=== PATIENT | female | born 1980 | race Two or more races ===

== ENCOUNTER 2019-10-06 04:25 | Emergency (ER) | payer OTHER ==
[~2019-10-06] VITALS: Ht 167.6 cm; Wt 568.4 kg
[2019-10-06 04:25] VITALS: BP 99/68
[2019-10-06 05:04] LABS: APPEARANCE,URINE TURBID (CLEAR); BILIRUBIN,URINE MODERATE (NEGATIVE); BLOOD, URINE LARGE Ery/uL (NEGATIVE); COLOR,URINE RED (YELLOW); KETONES,URINE NEGATIVE (NEGATIVE); LEUKOCYTE ESTERASE ,URINE LARGE (NEGATIVE); NITRITE, URINE POSITIVE (NEGATIVE); PROTEIN,URINE 100 mg/dl (NEGATIVE); UGLUCOSE NEGATIVE (NEGATIVE); UROBILINOGEN,URINE 0.2 EU/dL (0.2)
[2019-10-06 05:09] LABS: BACTERIA,URINE Few /HPF (None Seen); RBC,URINE TOO NUMEROUS TO COUN /HPF (0-2); SQUAMOUS EPITHELIAL CELL,UR Few /HPF (None Seen); WBC,URINE 21-50 /HPF (0-3)
[2019-10-06] MEDS ORDERED: NITROFURANTOIN/NITROFURAN MAC 100 MG CAPSULE PO ONE (05:30)
[2019-10-06] MEDS ORDERED: PHENAZOPYRIDINE HCL 200 MG TABLET PO ONE (05:30)
[2019-10-06] MEDS ORDERED: PHENAZOPYRIDINE HCL 200 MG TABLET ONE (05:41)
[2019-10-06] MEDS ORDERED: NITROFURANTOIN/NITROFURAN MAC 100 MG CAPSULE ONE (05:41)
--- NOTE | 2019-10-06 05:45 | NUR ---
Patient discharged to home in stable condition. Written and verbal after care instructions given. Patient verbalizes understanding of instruction. Pt ambulatory with a steady gait
== END 2019-10-06 05:46 | disposition home or self-care (01) ==
LOC: ER 04:48
DX: N39.0 Urinary tract infection, site not specified (principal); Z88.2 Allergy status to sulfonamides; Z88.1 Allergy status to other antibiotic agents
CPT/HCPCS: 81000-TC; 84703-TC; 87086-TC

== ENCOUNTER 2019-12-03 19:54 | Emergency (ER) | payer OTHER ==
[~2019-12-03] VITALS: Ht 167.6 cm; Wt 49.4 kg
[2019-12-03 19:54] VITALS: BP 107/72
== END 2019-12-03 20:29 | disposition home or self-care (01) ==
LOC: ER 20:00
DX: M54.5 Low back pain (principal); M25.561 Pain in right knee; G89.29 Other chronic pain; Z88.2 Allergy status to sulfonamides; Z88.1 Allergy status to other antibiotic agents; Z88.6 Allergy status to analgesic agent

== ENCOUNTER 2020-05-28 23:11 | Emergency (ER) | payer OTHER ==
[~2020-05-28] VITALS: Ht 167.6 cm; Wt 59.0 kg
--- NOTE | 2020-05-28 23:51 | NUR ---
PT AAOX4. AMBULATORY WITH STEADY GAIT. BIBSELF C/O L ARM TWITCHING, SI WITH PLAN TO RUN INTO TRAFFIC, CUT WRIST. PT PROVIDED URINE SAMPLE, SENT TO LAB. PT BELONINGS PLACED IN LOCKER. PT PLACED IN GOWN, ON MONITOR, AND PULSE OX.
[2020-05-29 00:10] LABS: BASOPHILS % (AUTO) 0.4 % (0.0-2.0); EOSINOPHILS % (AUTO) 0.5 % (0.0-6.0); HEMATOCRIT 40 % (33-45); HEMOGLOBIN 13.3 g/dL (11.5-14.8); LYMPHOCYTES # (AUTO) 2.2 /CMM (0.8-4.8); LYMPHOCYTES % (AUTO) 26.5 % (20.0-44.0); MEAN CORPUSCULAR HGB CONC 34 g/dl (31.0-36.0); MEAN CORPUSCULAR VOLUME 98 fL (82-100); MONOCYTES # (AUTO) 0.8 /CMM (0.1-1.30); MONOCYTES % (AUTO) 10.1 % (2.0-12.0); NEUTROPHILS # (AUTO) 5.3 /CMM (1.8-8.9); NEUTROPHILS % (AUTO) 62.5 % (43.0-81.0); PLATELET COUNT (AUTO) 270 /CMM (150-450); RED BLOOD CELL COUNT(AUTO) 4.05 MIL/uL (4.0-5.2); WHITE BLOOD COUNT (AUTO) 8.4 K/uL (4.3-11.0)
[2020-05-29 00:15] LABS: APPEARANCE,URINE SL CLOUDY (CLEAR); BILIRUBIN,URINE NEGATIVE (NEGATIVE); BLOOD, URINE TRACE-INTA Ery/uL (NEGATIVE); COLOR,URINE YELLOW (YELLOW); KETONES,URINE TRACE (NEGATIVE); LEUKOCYTE ESTERASE ,URINE SMALL (NEGATIVE); NITRITE, URINE NEGATIVE (NEGATIVE); PROTEIN,URINE NEGATIVE (NEGATIVE); UGLUCOSE NEGATIVE (NEGATIVE); UROBILINOGEN,URINE 0.2 EU/dL (0.2)
[2020-05-29 00:22] LABS: BACTERIA,URINE Many /HPF (None Seen); SQUAMOUS EPITHELIAL CELL,UR Moderate /HPF (None Seen)
[2020-05-29 00:23] LABS: URINE AMORPHOUS URATE Few /HPF (None Seen)
[2020-05-29 00:23] LABS: CALCIUM, SERUM 9.1 mg/dL (8.5-10.1); CARBON DIOXIDE 29 mmol/L (21-32); CHLORIDE 103 mmol/L (98-107); CREATININE 0.7 mg/dL (0.6-1.3); GLUCOSE 90 mg/dL (74-106); POTASSIUM 3.8 mmol/L (3.5-5.1); SODIUM SERUM 138 mmol/L (136-145); UREA NITROGEN, BLOOD 10 mg/dL (7-18)
[2020-05-29 00:31] LABS: ALANINE AMINOTRANSFERASE 20 U/L (12-78); ALBUMIN 3.9 g/dL (3.4-5.0); ALCOHOL, BLOOD < 3 mg/dL (0-0); ALKALINE PHOSPHATASE 57 U/L (46-116); ASPARTATE AMINOTRANSFERASE 17 U/L (15-37); BILIRUBIN,DIRECT 0.1 mg/dL (0.0-0.2); BILIRUBIN,TOTAL 0.5 mg/dL (0.2-1.0); TOTAL PROTEIN, SERUM 7.6 g/dL (6.4-8.2)
[2020-05-29 00:32] LABS: ACETAMINOPHEN < 2 ug/ml (10-30)
[2020-05-29] MEDS ORDERED: LORAZEPAM 1 MG TABLET ONE (01:05)
--- NOTE | 2020-05-29 01:14 | NUR ---
ENZOID SWABBED, SENT TO LAB.
--- NOTE | 2020-05-29 01:18 | NUR ---
CLINICAL FAXED TO [facility] FOR VOLUNTARY PSYCH ADMISSION.
[2020-05-29] MEDS ORDERED: LORAZEPAM 1 MG TABLET PO ONE (01:30)
--- NOTE | 2020-05-29 03:47 | NUR ---
PT ASLEEP, PROVIDED WITH MORE BLANKETS.
--- NOTE | 2020-05-29 04:39 | NUR ---
eceived a call from Azra at [facility] intake w/ acceptance info: pt got accepted at [facility] fernandez under DR Correa # for report: [phone] EX: [phone]
--- NOTE | 2020-05-29 04:42 | NUR ---
[facility] ETA 1000.
[2020-05-29 07:14] VITALS: BP 98/65
--- NOTE | 2020-05-29 07:15 | NUR ---
Matheus alvarez in [facility] - 05/29/20 at 0716 by NITIN REPORT GIVEN TO JOHANN HYMAN ADOLFO
--- NOTE | 2020-05-29 07:15 | NUR ---
PT TRANSFERED TO [facility].
--- NOTE | 2020-05-29 07:15 | NUR ---
REPORT GIVEN TO JOHANN TAN FOR ADOLFO
== END 2020-05-29 07:18 ==
LOC: ER 23:32
DX: F32.9 Major depressive disorder, single episode, unspecified (principal); R45.851 Suicidal ideations; Z20.828 Contact with and (suspected) exposure to other viral communicable diseases; Z88.2 Allergy status to sulfonamides; Z88.8 Allergy status to other drugs, medicaments and biological substances; G89.29 Other chronic pain; M54.9 Dorsalgia, unspecified
CPT/HCPCS: 36415; 80048; 80076; 80299; 80307; 80320; 81001; 84703; 85025; 87086; 87426; 99285; C9803; 81000-TC; G0480

== ENCOUNTER 2020-07-09 20:23 | Emergency (ER) | payer OTHER ==
[~2020-07-09] VITALS: Ht 167.6 cm; Wt 54.4 kg
--- NOTE | 2020-07-09 21:00 | NUR ---
PRESENTED TO THE ER FOR SUBSTANCE ABUSE. PT REPORTED HALLUCINATIONS, SI W. PLAN TO CUT HER WRIST. PT AMBULATORY TO BED 13. W/ STABLE VS. GOWNED UP . BELONGINGS TAKEN AWAY FOR SAFETY. PT REMAINED ON SI PRECAUTIONS. WILL CONT TO MONITOR
[2020-07-09 23:22] LABS: BASOPHILS # (AUTO) 0.1 /CMM (0.0-0.2); BASOPHILS % (AUTO) 0.8 % (0.0-2.0); EOSINOPHILS % (AUTO) 1.4 % (0.0-6.0); HEMATOCRIT 45 % (33-45); HEMOGLOBIN 14.9 g/dL (11.5-14.8); LYMPHOCYTES # (AUTO) 3.9 /CMM (0.8-4.8); LYMPHOCYTES % (AUTO) 47.5 % (20.0-44.0); MEAN CORPUSCULAR HGB CONC 34 g/dl (31.0-36.0); MEAN CORPUSCULAR VOLUME 97 fL (82-100); MONOCYTES # (AUTO) 0.7 /CMM (0.1-1.30); MONOCYTES % (AUTO) 8.2 % (2.0-12.0); NEUTROPHILS # (AUTO) 3.4 /CMM (1.8-8.9); NEUTROPHILS % (AUTO) 42.1 % (43.0-81.0); PLATELET COUNT (AUTO) 323 /CMM (150-450); RED BLOOD CELL COUNT(AUTO) 4.58 MIL/uL (4.0-5.2); WHITE BLOOD COUNT (AUTO) 8.1 K/uL (4.3-11.0)
[2020-07-09] MEDS ORDERED: LORAZEPAM 1 MG TABLET PO ONE (23:30)
[2020-07-09 23:31] LABS: CALCIUM, SERUM 9.2 mg/dL (8.5-10.1); CARBON DIOXIDE 21 mmol/L (21-32); CHLORIDE 105 mmol/L (98-107); CREATININE 0.8 mg/dL (0.6-1.3); GLUCOSE 79 mg/dL (74-106); POTASSIUM 3.2 mmol/L (3.5-5.1); SODIUM SERUM 141 mmol/L (136-145); UREA NITROGEN, BLOOD 11 mg/dL (7-18)
[2020-07-09 23:37] LABS: ALANINE AMINOTRANSFERASE 23 U/L (12-78); ALBUMIN 4.2 g/dL (3.4-5.0); ALCOHOL, BLOOD 4 mg/dL (0-0); ALKALINE PHOSPHATASE 68 U/L (46-116); ASPARTATE AMINOTRANSFERASE 28 U/L (15-37); BILIRUBIN,DIRECT 0.4 mg/dL (0.0-0.2); BILIRUBIN,TOTAL 1.7 mg/dL (0.2-1.0); TOTAL PROTEIN, SERUM 8.1 g/dL (6.4-8.2)
[2020-07-09 23:39] LABS: ACETAMINOPHEN < 2 ug/ml (10-30)
[2020-07-09] MEDS ORDERED: LORAZEPAM 1 MG TABLET ONE (23:43)
[2020-07-10 00:01] LABS: BILIRUBIN,URINE SMALL (NEGATIVE); BLOOD, URINE Moderate Ery/uL (NEGATIVE); COLOR,URINE YELLOW (YELLOW); LEUKOCYTE ESTERASE ,URINE Trace (NEGATIVE); NITRITE, URINE Negative (NEGATIVE); PH,URINE 6.5 (5.0-8.0); PROTEIN,URINE Trace mg/dl (NEGATIVE); UGLUCOSE Negative (NEGATIVE); UROBILINOGEN,URINE 0.2 EU/dL (0.2)
[2020-07-10 00:22] LABS: BACTERIA,URINE Few /HPF (None Seen); SQUAMOUS EPITHELIAL CELL,UR Few /HPF (None Seen)
--- NOTE | 2020-07-10 02:59 | NUR ---
rec'd a call from Simeon from [facility] intake pt got accepted by dr lin at [facility] unit 2 report to [phone] ext [phone]
--- NOTE | 2020-07-10 03:16 | NUR ---
[facility] transportation ETA: [id number]. trip #[phone]
[2020-07-10 03:47] VITALS: BP 97/47
--- NOTE | 2020-07-10 07:56 | NUR ---
report given to ambreen perkins at [facility]
--- NOTE | 2020-07-10 08:03 | NUR ---
Patient discharged to home in stable condition. Written and verbal after care instructions given. Patient verbalizes understanding of instruction. reporty given to health care analyst for ambulance rock picker.
== END 2020-07-10 08:05 ==
LOC: ER 20:23
DX: F32.9 Major depressive disorder, single episode, unspecified (principal); R45.851 Suicidal ideations; F15.10 Other stimulant abuse, uncomplicated; F12.10 Cannabis abuse, uncomplicated; Z86.19 Personal history of other infectious and parasitic diseases; Z20.828 Contact with and (suspected) exposure to other viral communicable diseases; Z88.1 Allergy status to other antibiotic agents; Z88.2 Allergy status to sulfonamides; G89.29 Other chronic pain; M54.9 Dorsalgia, unspecified
CPT/HCPCS: 36415; 80048; 80076; 80299; 80307; 80320; 81001; 84703; 85025; 87426; 99285; C9803; G0480

== ENCOUNTER 2020-10-20 | Emergency (ER) | payer OTHER ==
[~2020-10-20] VITALS: Ht 167.6 cm; Wt 59.0 kg
--- NOTE | 2020-10-20 00:20 | NUR ---
PT BIBSELF C/O GENERALIZED BODY PAIN S/P METH USE. PT AAOX4. VITAL SIGNS STABLE. AMBULATORY WITH STEADY GAIT. NO ACUTE DISTRESS.
[2020-10-20] MEDS ORDERED: OLANZAPINE 5 MG TABLET PO ONE (01:30)
--- NOTE | 2020-10-20 01:30 | NUR ---
PT DENIES SI/HI AT THIS TIME. AMBULATORY WITH STEADY GAIT. AAOX4. PT LEFT WITHOUT ACI
[2020-10-20 01:35] LABS: BASOPHILS % (AUTO) 0.5 % (0.0-2.0); EOSINOPHILS % (AUTO) 0.6 % (0.0-6.0); HEMATOCRIT 41 % (33-45); LYMPHOCYTES # (AUTO) 2.1 /CMM (0.8-4.8); LYMPHOCYTES % (AUTO) 25.3 % (20.0-44.0); MEAN CORPUSCULAR HGB CONC 34 g/dl (31.0-36.0); MEAN CORPUSCULAR VOLUME 94 fL (82-100); MONOCYTES # (AUTO) 0.4 /CMM (0.1-1.30); MONOCYTES % (AUTO) 5.3 % (2.0-12.0); NEUTROPHILS # (AUTO) 5.5 /CMM (1.8-8.9); NEUTROPHILS % (AUTO) 68.3 % (43.0-81.0); PLATELET COUNT (AUTO) 237 /CMM (150-450); RED BLOOD CELL COUNT(AUTO) 4.39 MIL/uL (4.0-5.2); WHITE BLOOD COUNT (AUTO) 8.1 K/uL (4.3-11.0)
[2020-10-20 01:42] LABS: BILIRUBIN,URINE NEGATIVE (NEGATIVE); COLOR,URINE YELLOW (YELLOW); LEUKOCYTE ESTERASE ,URINE MODERATE (NEGATIVE); NITRITE, URINE NEGATIVE (NEGATIVE); PH,URINE 6.5 (5.0-8.0); PROTEIN,URINE NEGATIVE (NEGATIVE); UGLUCOSE NEGATIVE (NEGATIVE); UROBILINOGEN,URINE 0.2 EU/dL (0.2)
[2020-10-20 01:43] LABS: CARBON DIOXIDE 26 mmol/L (21-32); CHLORIDE 105 mmol/L (98-107); CREATININE 0.8 mg/dL (0.6-1.3); GLUCOSE 94 mg/dL (74-106); POTASSIUM 3.6 mmol/L (3.5-5.1); SODIUM SERUM 140 mmol/L (136-145); UREA NITROGEN, BLOOD 11 mg/dL (7-18)
[2020-10-20 01:49] LABS: ALANINE AMINOTRANSFERASE 19 U/L (12-78); ALBUMIN 3.6 g/dL (3.4-5.0); ALCOHOL, BLOOD < 3 mg/dL (0-0); ALKALINE PHOSPHATASE 65 U/L (46-116); ASPARTATE AMINOTRANSFERASE 17 U/L (15-37); BILIRUBIN,DIRECT 0.1 mg/dL (0.0-0.2); BILIRUBIN,TOTAL 0.4 mg/dL (0.2-1.0); TOTAL PROTEIN, SERUM 7.3 g/dL (6.4-8.2)
[2020-10-20 01:53] LABS: BACTERIA,URINE Moderate /HPF (None Seen); SQUAMOUS EPITHELIAL CELL,UR Many /HPF (None Seen)
[2020-10-20 01:57] LABS: ACETAMINOPHEN < 2 ug/ml (10-30)
[2020-10-20 02:59] VITALS: BP 124/79
== END 2020-10-20 02:59 | disposition home or self-care (01) ==
LOC: ER 00:02
DX: F15.10 Other stimulant abuse, uncomplicated (principal); F41.9 Anxiety disorder, unspecified; Z88.1 Allergy status to other antibiotic agents; Z88.2 Allergy status to sulfonamides; G89.29 Other chronic pain; M54.9 Dorsalgia, unspecified; Z87.448 Personal history of other diseases of urinary system; Z20.822 Contact with and (suspected) exposure to COVID-19
CPT/HCPCS: 36415; 80048; 80076; 80299; 80307; 80320; 81001; 84703; 85025; 87086; 87426; 99284; C9803; G0480

== ENCOUNTER 2020-10-22 18:41 | Emergency (ER) | payer OTHER ==
[~2020-10-22] VITALS: Ht 167.6 cm; Wt 59.0 kg
--- NOTE | 2020-10-22 19:00 | NUR ---
URINE COLLECTED AND SENT TO LAB
--- NOTE | 2020-10-22 19:20 | NUR ---
STERILE PROCESSING MANAGER AT BEDSIDE FOR BLOOD DRAW
--- NOTE | 2020-10-22 19:20 | NUR ---
PT BIBSELF C/O SUICIDAL IDEATION WITH PLAN TO OVERDOSE ON PILLS. PT STATES SHE IS ALSO C/O AUDITORY HALLUCINATIONS, DENIES HI. PT AAOX4, CALM AND COOPERATIVE. VITAL SIGNS STABLE. RESPIRATIONS EVEN AND UNLABORED. SKIN WARM AND INTACT. AMBULATORY WITH STEADY GAIT. NO ACUTE DISTRESS NOTED AT THIS TIME.
--- NOTE | 2020-10-22 19:50 | NUR ---
COVID SWAB COLLECTED AND SENT TO LAB
[2020-10-22 19:58] LABS: CALCIUM, SERUM 9.1 mg/dL (8.5-10.1); CARBON DIOXIDE 25 mmol/L (21-32); CHLORIDE 103 mmol/L (98-107); CREATININE 0.9 mg/dL (0.6-1.3); GLUCOSE 100 mg/dL (74-106); POTASSIUM 4.1 mmol/L (3.5-5.1); SODIUM SERUM 138 mmol/L (136-145); UREA NITROGEN, BLOOD 10 mg/dL (7-18)
[2020-10-22 20:04] LABS: BILIRUBIN,URINE NEGATIVE (NEGATIVE); COLOR,URINE YELLOW (YELLOW); LEUKOCYTE ESTERASE ,URINE NEGATIVE (NEGATIVE); NITRITE, URINE NEGATIVE (NEGATIVE); PROTEIN,URINE NEGATIVE (NEGATIVE); UGLUCOSE NEGATIVE (NEGATIVE); UROBILINOGEN,URINE 0.2 EU/dL (0.2)
[2020-10-22 20:07] LABS: ALANINE AMINOTRANSFERASE 18 U/L (12-78); ALBUMIN 4.2 g/dL (3.4-5.0); ALCOHOL, BLOOD < 3 mg/dL (0-0); ALKALINE PHOSPHATASE 73 U/L (46-116); ASPARTATE AMINOTRANSFERASE 16 U/L (15-37); BILIRUBIN,DIRECT 0.1 mg/dL (0.0-0.2); BILIRUBIN,TOTAL 0.4 mg/dL (0.2-1.0); TOTAL PROTEIN, SERUM 8.8 g/dL (6.4-8.2)
[2020-10-22 20:11] LABS: ACETAMINOPHEN < 2 ug/ml (10-30)
[2020-10-22 20:15] LABS: BACTERIA,URINE None seen /HPF (None Seen); CALCIUM OXALATE CRYSTALS,UR Few /HPF (None Seen); RBC,URINE 0-2 /HPF (0-2); SQUAMOUS EPITHELIAL CELL,UR Few /HPF (None Seen); WBC,URINE 0-2 /HPF (0-3)
[2020-10-22 20:16] LABS: URINE AMORPHOUS URATE Few /HPF (None Seen)
[2020-10-22 20:18] LABS: BASOPHILS % (AUTO) 0.4 % (0.0-2.0); EOSINOPHILS % (AUTO) 0.1 % (0.0-6.0); HEMATOCRIT 47 % (33-45); HEMOGLOBIN 15.9 g/dL (11.5-14.8); LYMPHOCYTES # (AUTO) 2.1 /CMM (0.8-4.8); MEAN CORPUSCULAR HGB CONC 34 g/dl (31.0-36.0); MEAN CORPUSCULAR VOLUME 95 fL (82-100); MONOCYTES # (AUTO) 0.4 /CMM (0.1-1.30); MONOCYTES % (AUTO) 5.5 % (2.0-12.0); NEUTROPHILS # (AUTO) 5.2 /CMM (1.8-8.9); PLATELET COUNT (AUTO) 276 /CMM (150-450); RED BLOOD CELL COUNT(AUTO) 4.96 MIL/uL (4.0-5.2); WHITE BLOOD COUNT (AUTO) 7.8 K/uL (4.3-11.0)
--- NOTE | 2020-10-22 22:05 | NUR ---
clinical and facesheet faxedt o [facility] intake for voluntary psych admission.
--- NOTE | 2020-10-22 23:18 | NUR ---
TRANSFER INFORMATION: PT ACCEPTED AT [facility] ZAHIDA MARSHALL ACCEPTING MD LAUREN/JOSIAS PT WILL GO TO UNIT 2 PHONE # FOR REPORT
--- NOTE | 2020-10-22 23:19 | NUR ---
[facility] ETA [phone]
--- NOTE | 2020-10-23 00:22 | NUR ---
REPORT GIVEN TO BRITNEY LIZ FROM [facility] FOR ADOLFO
[2020-10-23 00:38] VITALS: BP 132/68
--- NOTE | 2020-10-23 00:38 | NUR ---
TRANSPORT AT BEDSIDE REPORT GIVEN TO EMT.
== END 2020-10-23 00:39 ==
LOC: ER 18:51
DX: R45.851 Suicidal ideations (principal); R44.0 Auditory hallucinations; G89.29 Other chronic pain; M54.9 Dorsalgia, unspecified; F41.9 Anxiety disorder, unspecified; Z20.822 Contact with and (suspected) exposure to COVID-19; Z88.1 Allergy status to other antibiotic agents; Z88.2 Allergy status to sulfonamides
CPT/HCPCS: 36415; 80048; 80076; 80299; 80307; 80320; 81001; 84703; 85025; 87426; 99285; C9803; G0480

== ENCOUNTER 2021-07-22 02:38 | Emergency (ER) | payer BC ==
[~2021-07-22] VITALS: Ht 167.6 cm; Wt 61.2 kg
--- NOTE | 2021-07-22 03:57 | NUR ---
PRESENTED TO THE ER FOR C/O SI. WITH DIFFRENT PLAN INCLULDING CUTTING HER WRIST OR OVERDOSING. PT WIT HX OF SI. REQUESTING MEDICAL CLEARANCE FOR VOLUNTARY PSYCH ADMISSION. AMBULATORY WITH STEADY GAITS TO THE BATHROOM. URINE SAMPLE OBTAINED. PT WAS PLACED IN BED 14 ER UNDER SUPERVISION OF A SITTER. SI PRECAUTION IMPLEMENTED .NEEDS ATTENDED . VSS. WILL CONT TO MONITOR ,.
[2021-07-22] MEDS ORDERED: LORAZEPAM INJ 2 MG/ML VIAL ONE (04:09)
[2021-07-22 04:30] LABS: BASOPHILS # (AUTO) 0.1 K/uL (0.0-0.2); EOSINOPHILS % (AUTO) 0.7 % (0.0-6.0); HEMATOCRIT 43 % (33-45); HEMOGLOBIN 14.9 g/dL (11.5-14.8); LYMPHOCYTES # (AUTO) 3.3 K/uL (0.8-4.8); LYMPHOCYTES % (AUTO) 41.2 % (20.0-44.0); MEAN CORPUSCULAR HGB CONC 35 g/dl (31.0-36.0); MEAN CORPUSCULAR VOLUME 96 fL (82-100); MONOCYTES % (AUTO) 12.6 % (2.0-12.0); NEUTROPHILS # (AUTO) 3.6 K/uL (1.8-8.9); NEUTROPHILS % (AUTO) 44.5 % (43.0-81.0); PLATELET COUNT (AUTO) 372 K/uL (150-450)
[2021-07-22] MEDS ORDERED: LORAZEPAM INJ 2 MG/ML VIAL IV ONE (04:30)
[2021-07-22 04:31] LABS: BILIRUBIN,URINE NEGATIVE (NEGATIVE); COLOR,URINE YELLOW (YELLOW); LEUKOCYTE ESTERASE ,URINE NEGATIVE (NEGATIVE); NITRITE, URINE NEGATIVE (NEGATIVE); PROTEIN,URINE NEGATIVE (NEGATIVE); UGLUCOSE NEGATIVE (NEGATIVE); UROBILINOGEN,URINE 0.2 EU/dL (0.2)
[2021-07-22 04:42] LABS: CALCIUM, SERUM 9.1 mg/dL (8.5-10.1); CARBON DIOXIDE 23 mmol/L (21-32); CHLORIDE 101 mmol/L (98-107); GLUCOSE 79 mg/dL (74-106); POTASSIUM 3.8 mmol/L (3.5-5.1); SODIUM SERUM 137 mmol/L (136-145); UREA NITROGEN, BLOOD 13 mg/dL (7-18)
[2021-07-22 04:46] LABS: ALANINE AMINOTRANSFERASE 21 U/L (12-78); ALBUMIN 4.3 g/dL (3.4-5.0); ALCOHOL, BLOOD < 3 mg/dL (0-0); ALKALINE PHOSPHATASE 87 U/L (46-116); ASPARTATE AMINOTRANSFERASE 19 U/L (15-37); BILIRUBIN,DIRECT 0.2 mg/dL (0.0-0.2); BILIRUBIN,TOTAL 0.8 mg/dL (0.2-1.0); TOTAL PROTEIN, SERUM 8.2 g/dL (6.4-8.2)
[2021-07-22 04:47] LABS: ACETAMINOPHEN 0 ug/ml (10-30)
--- NOTE | 2021-07-22 05:57 | NUR ---
ACE BONNER HAS REC'D THE CLINICALS
--- NOTE | 2021-07-22 07:53 | NUR ---
PATIENT SLEEPING COMFORTABLY IN BED, EASILY AROUSABLE. OFFERED BREAKFAST
--- NOTE | 2021-07-22 08:00 | NUR ---
CALLED SO ELISSA DU TO FOLLOW UP ON PT ACCEPTANCE. WAS NOTIFIED THAT THE PT'S CLINICLAS ARE STILL BEING REVIEWED
--- NOTE | 2021-07-22 09:51 | NUR ---
THE PATIENT IS SERVED BREAKFAST. TOLERATED PROVIDED MEAL WELL
--- NOTE | 2021-07-22 10:29 | NUR ---
CALLED AND SPOKE WITH ASHLI (SO-ELISSA INTAKE). WILL CALL US BACK FOR UPDATE.
[2021-07-22 11:00] VITALS: BP 121/79
--- NOTE | 2021-07-22 11:00 | NUR ---
SS Consult: SS Consult requested for homelessness. The pt. is a 40-year-old female that came to the ED with c/o SI, & drug abuse. Per EMR, the pt. 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 Upon SS consult, the pt. is A&O x 4 and makes appropriate eye contact. The pt. appears unkempt. Pt. presents with a depressed mood and flat affect. The pt. states she has been experiencing intermittent SI. Per pt. drug use make her symptoms worse. SW explored pt.'s living situation. Per the pt., she had been experiencing homelessness for the past 5 years. Pt. states she ambulates independently. SW explored pt.'s drug & ETOH use. Pt. states she has relapsed back to using "Meth & Benzos". SW explored pt.'s mental health Hx. Per the pt., he has been diagnosed with Bipolar Disorder and states he does not take any medication. Pt. denies current HI and denies current hallucinations. However, she states she does experience hallucinations at times when using "Meth". Pt. states she receives EBT, & SSI. SW explored pt.'s support system. Pt. states he has no support system except her father,, Glen Madden [phone]. Plan: Pt. signed homeless waiver & it was placed in the pt.'s chart. SANDY provided homeless resources to pt. and she accepted them. Year-round shelters: [place] [facility] [address] [place], [place] [phone] ; [facility] [address] [place] [address]; [facility] [id number] [facility] [address] Winter Shelters: SPA 2 | [facility] Bert: Bel amezcua the Wilmer Address: Confidential (call for location ) Population Served: Coed # of Beds: 57 SPA 4 | [facility] Provider: Home at Last Address: [address] [place] [address] # of Beds: 49 Population Served: Coed SPA 6 | [facility] Provider: Home at Last Address: [address] [address] [facility], [address] # of Beds: 49 Population Served: Coed [facility] Provider: Derrek MYERS Address: [address] [facility] [address] # of Beds: 20 Population Served: Women FILIPPO Facility Provider: Home at Last Address: [address] [facility] [address] # of Beds: 30 Population Served: Women SPA 8 | [facility] Provider: Bryanna of Nani Address: [address] [facility] [address] # of Beds: 65 Population Served: Coed Hygiene: [place] [facility]: [address] [address] [facility] ; [place] [facility] [address] [facility] ; [facility] [address] [facility] . Food Resources: [place] [employer] [facility] at [facility]- [address] [facility]; Meet Each Need with Dignity ([facility]) [address] [facility]; [facility] [address] [facility]; [facility] 8583 [facility]. Mental Health resources provided: [facility] [address] [place] [address] ; [facility] [address], [place] [address] ; Haley Reyna [facility] [address] [place] [address] ; [facility] [address] [place], [place] [phone] Healthcare Clinics: [facility] [address] [facility], [address] [place]. [place] ; [facility] [address] [facility] [address] [place] [address]; [facility] [address] [facility] [place] [phone]) [phone] Counseling--[facility] [address] [facility], [place] [address] (Specializes in in-depth psychotherapy for emotional distress: anxiety, depression, interpersonal conflicts, life transitions, childhood abuse) [facility] [address] [place] [address] (Assist with solving problem marital difficulties, separation & divorce, aging parents, & grief, chronic & terminal illness) [facility] [address] [place] [address] (Deal with loss & grief, anxiety, marital difficulties) Homebound/Mental Health Services [address] [facility] [facility] [address] [place] [address] (Provide in-home mental services to people who are incapable of leaving their homes) [facility] for Needs of the Elderly Senior Service/Resource Center [address] [place] [address] [facility] [address] [place] [address] PSYCHIATRIC OUTPATIENT SERVICES [facility] Partial Hospitalization and Intensive Outpatient Program (Managed Care and Everetts Only)[address] [facility] [phone] [facility] Partial Hospitalization and Outpatient Kozxemt[address] [facility] [address] [place], [place] [phone] [facility] [place]oven Jja[address] [facility] [address] [place], [place] [phone] [facility] Partial Hospitalization and Outpatient [id number] [place], [phone] Substance Abuse resources provided included: [facility] Substance Abuse Self-Helpline (SASH) ; CRI -HELP [address] [facility]. [place] [address] ; [facility] [address] [facility] [address] ; [facility] Rehabilitation Program [address] [place]. [place] [phone] ; [facility] [address] [facility] [address] ; [facility] [address] [facility] [phone] ; Forter [address] [facility] [facility] [phone] ; [facility] Substance Abuse Helpline([facility] [place] ; [facility] ; [facility]; Carla [facility]; C[facility]Help [place]; [facility] [address] [place]; [facility] [facility] [place]; [facility] Ronceverte; [facility] [place]; [facility]'s [facility] [facility] [place]; Alcoholics Anonymous -SFV; Cf-Jtue-Liginwm ; Marijuana Anonymous -SFV; Narcotics Anonymous www.na.org;
--- NOTE | 2021-07-22 13:18 | NUR ---
FAXED NEW LAB RESULTS TO CLAUDIA DU
--- NOTE | 2021-07-22 19:10 | NUR ---
Patient eloped from facility. Dr Teixeira notified.
== END 2021-07-22 19:13 | disposition left against medical advice (07) ==
LOC: ER 02:38
DX: F31.9 Bipolar disorder, unspecified (principal); R45.851 Suicidal ideations; Z91.52 Personal history of nonsuicidal self-harm; Z88.2 Allergy status to sulfonamides; Z88.8 Allergy status to other drugs, medicaments and biological substances; Z20.822 Contact with and (suspected) exposure to COVID-19; F41.9 Anxiety disorder, unspecified; G89.29 Other chronic pain; M54.9 Dorsalgia, unspecified; F15.90 Other stimulant use, unspecified, uncomplicated; Z53.29 Procedure and treatment not carried out because of patient's decision for other reasons
CPT/HCPCS: 36415; 80048; 80076; 80143; 80307; 80320; 81003; 84703; 85025; 87426; 93005; 99285; C9803; J2060; G0480